=== PATIENT | female | born 1980 | race African-American/Black ===

== ENCOUNTER 2020-01-03 19:11 | Emergency (ER) | payer MEDICAID, OTHER ==
[~2020-01-03] VITALS: Ht 162.6 cm; Wt 63.6 kg
[2020-01-03] MEDS ORDERED: LIDO1ADH5 TP (19:34)
[2020-01-03] MEDS ORDERED: [UNRECOGNIZED DRUG - CODE] TP (19:34)
[2020-01-03] MEDS ORDERED: BACL10TA PO (19:34)
[2020-01-03] MEDS ORDERED: ACET-66 PO (19:35)
[2020-01-03] MEDS ORDERED: LIDOCAINE 5% TRANSDERMAL PATCH TD ONE (22:30)
[2020-01-03] MEDS ORDERED: ACETAMINOPHEN 500 MG TABLET PO ONE (22:30)
[2020-01-03] MEDS ORDERED: DIAZEPAM 5 MG TABLET PO ONE (22:45)
[2020-01-03] MEDS ORDERED: DEXAMETHASONE SOD PHOS 4 MG/ML 5 ML VIAL IM ONE (22:45)
[2020-01-03] MEDS ORDERED: KETOROLAC TROMETHAMINE 30 MG/ML VIAL IM ONE (22:45)
[2020-01-04 00:07] VITALS: BP 130/70
== END 2020-01-04 00:08 | disposition home or self-care (01) ==
LOC: EMS 19:11
DX: M54.2 Cervicalgia (principal); R20.0 Anesthesia of skin
CPT/HCPCS: 96372; 99284; J1100; J1885

== ENCOUNTER 2024-05-13 04:59 | Emergency (ER) | payer MEDICAID, OTHER ==
[~2024-05-13] VITALS: Ht 162.6 cm; Wt 73.0 kg
[~2024-05-13 04:59] MED LIST: ACET-3385 PO; BACL10TA PO; LIDO1ADH5 TP; [UNRECOGNIZED DRUG - CODE] TP
[2024-05-13 05:58] VITALS: BP 118/63; PULSE 69; RESP 20; TEMP 97.3
[2024-05-13] MEDS: AZITHROMYCIN 500 MG TABLET PO ONE (06:48)
[2024-05-13] MEDS: CefTRIAXone SODIUM 1 GM/VIAL IM ONE (06:48)
[2024-05-13] MEDS: LIDOCAINE/PF 1% 2 ML VIAL IM ONE (06:51)
[2024-05-13 07:02] LABS: APPEARANCE,URINE CLEAR (CLEAR); BILIRUBIN,URINE NEGATIVE (NEGATIVE); COLOR,URINE LIGHT YELLOW (YELLOW); GLUCOSE, URINE (UA) NEGATIVE (NEGATIVE); KETONES,URINE NEGATIVE (NEGATIVE); LEUKOCYTE ESTERASE ,URINE SMALL (NEGATIVE); NITRATE,URINE NEGATIVE (NEGATIVE); OCCULT BLOOD,URINE MODERATE (NEGATIVE); PH,URINE 6.5 (5.0-8.0); PROTEIN,URINE NEGATIVE (NEGATIVE); SPECIFIC GRAVITIY, URINE 1.022 (1.003-1.030); UROBILINOGEN,URINE <=1.0 mg/dL (<=1.0)
[2024-05-13 07:41] LABS: BACTERIA,URINE None Seen /HPF (None Seen); RBC,URINE None Seen /HPF (0-2); SQUAMOUS EPITHELIAL CELL,UR Few /LPF (None Seen)
[2024-05-13] MEDS ORDERED: METR250 PO (08:04)
== END 2024-05-13 08:09 | disposition home or self-care (01) ==
LOC: EMS 04:59
DX: N34.2 Other urethritis (principal)
CPT/HCPCS: 99283; 81001; 87491; 87591; 96372; J0696; J3490; Q9967